=== PATIENT | male | born 2000 | race Caucasian/White ===

== ENCOUNTER 2024-09-28 15:40 | Emergency (ER) | payer BC, SELFPAY ==
--- NOTE | 2024-09-28 15:41 | ED_ITS ---
HPI - Skin/Abscess/Foreign Bdy General Chief complaint: Skin/Abscess/Foreign Body Stated complaint: tick bite Time Seen by Provider: 09/28/24 15:40 Source: patient Mode of arrival: ambulatory Limitations: no limitations History of Present Illness HPI narrative: Los is a 23-year-old male patient presenting to the clinic today with complaints of a tick bite to the left upper chest wall. He reports he pulled off a tick yesterday that was likely they are less than 8 hours. Has redness and swelling with pain today. Denies any fevers, chills, body aches, or joint pain. Related Data Allergies Allergy/AdvReac Type Severity Reaction Status Date / Time No Known Allergies Allergy Mild Verified 09/28/24 15:41 Review of Systems Review of Systems: Pertinent positives per HPI. Patient denies any fever, chills, headache, visual changes, dizziness, cough, runny nose, sore throat, shortness of breath, chest pain, palpitations, nausea, vomiting, diarrhea, constipation, abdominal pain, or any urinary issues. PMFSH Comments At the time of my signature, I reviewed and agree with the nursing past medical, surgical, social, and family history. There is no relevant family history per tinent to the patient complaint. Exam Narrative: General: Well-developed, well nourished, in no apparent distress Head: Normocephalic, atraumatic. Cardio: Regular rate and rhythm, s1 and s2 normal, no murmur appreciated. Resp: Clear to auscultation bilaterally, no rhonchi, rales, wheezing or rubs. Integumentary: [place], warm, and dry, red condo raised, tender, indurated take bite to the left upper chest wall measuring 3 x 1 cm with yellow discharge Course Course Emergency Course: Portions of this record may have been created with voice recognition software. Level of Care: Express Care Visit Vital Signs Vital signs: Vital Signs Temperature 36.8 C 09/28/24 15:51 Pulse Rate 75 09/28/24 15:51 Respiratory Rate 17 09/28/24 15:51 Blood Pressure 130/70 09/28/24 15:51 Pulse Oximetry 100 09/28/24 15:51 Oxygen Delivery Room Air 09/28/24 15:51 Temperature 36.8 C 09/28/24 15:51 Pulse Rate 75 09/28/24 15:51 Respiratory Rate 17 09/28/24 15:51 Blood Pressure 130/70 09/28/24 15:51 Pulse Oximetry 100 09/28/24 15:51 Oxygen Delivery Room Air 09/28/24 15:51 Vital signs reviewed MDM - Skin/Abscess/Foreign Bdy MDM Narrative Medical decision making narrative: At the time of visit patient is resting comfortably on the exam table. Patient appears to be nontoxic. Plan: I suspect patient has infected tick bite. Prescription for doxycycline was sent to the pharmacy. Supportive measures were discussed with the patient and they voiced understanding discharge instructions and agrees to treatment plan. Return precautions reviewed Differential Diagnosis Differential diagnosis: Likely abscess of skin or subcutaneous tissue, viral exanthem, dermatophytosis, urticaria, herpes zoster, allergic reaction to drug, cellulitis, eczema, insect bites, impetigo and contact dermatitis Discharge Plan Discharge Clinical Impression: Infected tick bite Qualifiers: Encounter type: initial encounter Qualified Code(s): W57.XXXA - Bitten or stung by nonvenomous insect and other nonvenomous arthropods, initial encounter Patient Disposition: Home Condition: Stable Instructions: Antibiotic Form, Tick Bite (ED) Additional Instructions: Take doxycycline as prescribed Keep wound clean and dry May take Tylenol/Motrin as needed for pain Watch for signs and symptoms of worsening infection- redness, streaking, swelling, purulent discharge, or increase in pain. Follow up with your PCP in 2-3 days for wound check. Go to the emergency room if you develop worsening symptoms of infection confusion, body aches, weakness, joint pain, or lethargy Patient Language: Turkmen Prescriptions: New doxycycline monohydrate 100 mg capsule 100 mg PO BID 7 Days Qty: 14 0RF Follow-up/Referrals: PHYSICIAN,MECHANICAL DEVELOPER PROVER [Primary Care Provider] - Time of Disposition: 15:58 Quality NIHSS Nursing Documentation ED NIHSS nursing documentation: reviewed/agree
[2024-09-28 15:51] VITALS: BP 130/70; PULSE 75; RESP 17; TEMP 36.8; O2SAT 100
== END 2024-09-28 16:06 | disposition home or self-care (01) ==
LOC: EXPTROY 15:45
PROVIDERS: Emergency Provider Nurse Practitioner Family; Referring Provider Emergency Medicine
DX: S20.362A Insect bite (nonvenomous) of left front wall of thorax, initial encounter (principal); W57.XXXA Bitten or stung by nonvenomous insect and other nonvenomous arthropods, initial encounter
CPT/HCPCS: 99203; G0463